=== PATIENT | female | born 1955 | race Caucasian/White ===

== ENCOUNTER → 2017-03-08 | Day surgery (SDC) | payer OTHER, MEDICAID ==
[~2017-03-08] VITALS: Ht 160 cm; Wt 90.3 kg
[2017-03-08 08:38] VITALS: BP 122/69
[2017-03-08 13:02] VITALS: BP 118/64
== END | disposition home or self-care (01) ==
LOC: DS 07:23 → GI 12:30 → OR 12:30
PROVIDERS: Internal Medicine
PROC: 0W3P8ZZ Control Bleeding in Gastrointestinal Tract, Via Natural or Artificial Opening Endoscopic (ICD-10-PCS; principal; 2017-03-08 12:30)
DX: Q27.33 Arteriovenous malformation of digestive system vessel (principal); D50.9 Iron deficiency anemia, unspecified; E11.9 Type 2 diabetes mellitus without complications; I10 Essential (primary) hypertension; K74.60 Unspecified cirrhosis of liver; F32.9 Major depressive disorder, single episode, unspecified; E66.9 Obesity, unspecified; Z68.35 Body mass index [BMI] 35.0-35.9, adult
CPT/HCPCS: 43235; J1610; J2250; J3010; J3490

== ENCOUNTER 2017-06-21 06:30 | Day surgery (SDC) | payer OTHER, MEDICAID ==
[~2017-06-21] VITALS: Ht 160 cm; Wt 91.6 kg
[2017-06-21 07:00] VITALS: BP 133/71
[2017-06-21 11:01] VITALS: BP 120/56
== END 2017-06-21 10:45 | disposition home or self-care (01) ==
LOC: GI 06:30 → OR 11:30
PROVIDERS: Internal Medicine
PROC: 0W3P8ZZ Control Bleeding in Gastrointestinal Tract, Via Natural or Artificial Opening Endoscopic (ICD-10-PCS; principal; 2017-06-21 10:30)
PROC: 0D598ZZ Destruction of Duodenum, Via Natural or Artificial Opening Endoscopic (ICD-10-PCS; 2017-06-21 10:30)
PROC: 0D5A8ZZ Destruction of Jejunum, Via Natural or Artificial Opening Endoscopic (ICD-10-PCS; 2017-06-21 10:30)
DX: K31.811 Angiodysplasia of stomach and duodenum with bleeding (principal); K55.20 Angiodysplasia of colon without hemorrhage; D50.9 Iron deficiency anemia, unspecified; E11.9 Type 2 diabetes mellitus without complications; I10 Essential (primary) hypertension; F32.9 Major depressive disorder, single episode, unspecified; E66.9 Obesity, unspecified; Z68.36 Body mass index [BMI] 36.0-36.9, adult
CPT/HCPCS: 43235; J1200; J1610; J2250; J2310; J3010; J3490

== ENCOUNTER 2017-09-27 07:02 | Day surgery (SDC) | payer OTHER, MEDICAID ==
[~2017-09-27] VITALS: Ht 160 cm; Wt 93.9 kg
[2017-09-27 07:10] VITALS: BP 125/69
[2017-09-27 10:24] VITALS: BP 114/51
== END 2017-09-27 11:10 | disposition home or self-care (01) ==
LOC: GI 07:02 → OR 09:30 → GI 11:10
PROVIDERS: Internal Medicine
PROC: 0W3P8ZZ Control Bleeding in Gastrointestinal Tract, Via Natural or Artificial Opening Endoscopic (ICD-10-PCS; principal; 2017-09-27 09:30)
DX: K31.811 Angiodysplasia of stomach and duodenum with bleeding (principal); D50.0 Iron deficiency anemia secondary to blood loss (chronic); I10 Essential (primary) hypertension; E11.9 Type 2 diabetes mellitus without complications; F32.9 Major depressive disorder, single episode, unspecified; E66.9 Obesity, unspecified; Z68.38 Body mass index [BMI] 38.0-38.9, adult
CPT/HCPCS: 43235; 82962; J1200; J1610; J2250; J2310; J3010; J3490

== ENCOUNTER 2018-09-26 08:04 | Day surgery (SDC) | payer OTHER, MEDICAID ==
[~2018-09-26] VITALS: Ht 160 cm; Wt 93.9 kg
[2018-09-26 08:41] VITALS: BP 122/68
[2018-09-26 11:20] VITALS: BP 133/76
== END 2018-09-26 11:15 | disposition home or self-care (01) ==
LOC: GI 08:04 → OR 11:30 → GI 11:30
PROVIDERS: Internal Medicine
PROC: 0DB68ZZ Excision of Stomach, Via Natural or Artificial Opening Endoscopic (ICD-10-PCS; principal; 2018-09-26 11:30)
DX: K31.7 Polyp of stomach and duodenum (principal); K92.2 Gastrointestinal hemorrhage, unspecified; D50.0 Iron deficiency anemia secondary to blood loss (chronic); I78.0 Hereditary hemorrhagic telangiectasia; E11.9 Type 2 diabetes mellitus without complications; I10 Essential (primary) hypertension; F32.9 Major depressive disorder, single episode, unspecified; E66.9 Obesity, unspecified; Z68.39 Body mass index [BMI] 39.0-39.9, adult
CPT/HCPCS: 43235; J1200; J1610; J2250; J2310; J2405; J3010; J3490

== ENCOUNTER 2019-05-22 07:49 | Day surgery (SDC) | payer OTHER, MEDICAID ==
[~2019-05-22] VITALS: Ht 160 cm; Wt 102.5 kg
[2019-05-22 08:29] VITALS: BP 127/76
[2019-05-22 13:36] VITALS: BP 128/72
== END 2019-05-22 10:45 | disposition home or self-care (01) ==
LOC: GI 07:49 → OR 11:30 → GI 12:35
DX: D50.9 Iron deficiency anemia, unspecified (principal); I78.0 Hereditary hemorrhagic telangiectasia; K31.7 Polyp of stomach and duodenum; E11.9 Type 2 diabetes mellitus without complications; E78.5 Hyperlipidemia, unspecified; I10 Essential (primary) hypertension; E66.9 Obesity, unspecified; F32.9 Major depressive disorder, single episode, unspecified; Z79.899 Other long term (current) drug therapy; Z68.41 Body mass index [BMI] 40.0-44.9, adult; Z90.49 Acquired absence of other specified parts of digestive tract; Z87.59 Personal history of other complications of pregnancy, childbirth and the puerperium
CPT/HCPCS: 43235; J1200; J1610; J2250; J2310; J3010; J3490

== ENCOUNTER 2019-09-04 08:30 | Day surgery (SDC) | payer OTHER, MEDICAID ==
[~2019-09-04] VITALS: Ht 160 cm; Wt 102.5 kg
[2019-09-04 09:42] VITALS: BP 112/65
[2019-09-04 11:36] VITALS: BP 96/59
== END 2019-09-04 11:20 | disposition home or self-care (01) ==
LOC: GI 08:30 → OR 11:30
DX: D64.9 Anemia, unspecified (principal); K31.7 Polyp of stomach and duodenum; K21.9 Gastro-esophageal reflux disease without esophagitis; M19.90 Unspecified osteoarthritis, unspecified site; Z79.899 Other long term (current) drug therapy; Z98.891 History of uterine scar from previous surgery; Z90.49 Acquired absence of other specified parts of digestive tract; Z78.0 Asymptomatic menopausal state
CPT/HCPCS: 43235; 82962; J1200; J1610; J2250; J2310; J3010; J3490

== ENCOUNTER 2020-02-05 06:40 | Day surgery (SDC) | payer OTHER, MEDICAID ==
[~2020-02-05] VITALS: Ht 160 cm; Wt 97.5 kg
[2020-02-05 07:13] VITALS: BP 121/67
[2020-02-05 09:54] VITALS: BP 103/65
== END 2020-02-05 09:25 | disposition home or self-care (01) ==
LOC: DS 06:40 → GI 07:30 → OR 07:30 → DS 09:25
PROVIDERS: ATTEND Internal Medicine
DX: D50.9 Iron deficiency anemia, unspecified (principal); K44.9 Diaphragmatic hernia without obstruction or gangrene; K31.7 Polyp of stomach and duodenum; I78.0 Hereditary hemorrhagic telangiectasia; E11.9 Type 2 diabetes mellitus without complications; I10 Essential (primary) hypertension; F32.9 Major depressive disorder, single episode, unspecified; E66.9 Obesity, unspecified; Z79.899 Other long term (current) drug therapy; Z79.84 Long term (current) use of oral hypoglycemic drugs; Z86.010 Personal history of colon polyps; Z82.49 Family history of ischemic heart disease and other diseases of the circulatory system; Z98.890 Other specified postprocedural states; Z83.49 Family history of other endocrine, nutritional and metabolic diseases; Z79.82 Long term (current) use of aspirin
CPT/HCPCS: 43235; J1200; J1610; J2250; J2310; J3010; J3490